=== PATIENT | male | born 1945 | race Caucasian/White ===

== ENCOUNTER → 2018-05-02 14:06 | Outpatient (CLI) | payer MEDICARE, SELFPAY ==
--- NOTE | 2018-05-02 14:26 | RAD_ITS ---
STUDY: X-RAY CHEST REASON FOR EXAM: Male, 72 years old. Cough TECHNIQUE: PA and lateral views of the chest. COMPARISON: 04/05/2017 FINDINGS: There is bilateral stable gynecomastia. Flattening of the diaphragm with increased AP diameter of the thorax. There is no focal parenchymal abnormality. There is no demonstrated pleural abnormality. Normal size heart. Normal mediastinum and bruno. Normal visualized pulmonary arteries. There is atherosclerotic calcification of the aortic arch with tortuosity. There are diffuse degenerative changes of the visualized thoracic spine. Normal visualized ribs, clavicles, and shoulders. There is no demonstrated abnormality of the visualized soft tissue structures of the upper abdomen. RAD/Chest PA and Lateral IMPRESSION: Component of COPD appears unchanged. No pulmonary edema, congestive heart failure or confluent pneumonia. Other nonacute findings as outlined above. Electronically Signed: Lakeshia Rivera MD at 7:28 EDT , Service support ,
[2018-05-02 16:41] LABS: BNP,B-Type NATRIURETIC PEPTIDE 97.5 pg/mL (0-100)
== END ==
PROVIDERS: Referring Provider Nurse Practitioner Family; Visit Provider Nurse Practitioner Family
DX: I35.0 Nonrheumatic aortic (valve) stenosis (principal); R05 Cough; R06.09 Other forms of dyspnea
CPT/HCPCS: 36415; 71046; 83880

== ENCOUNTER → 2018-05-14 14:48 | Outpatient (CLI) | payer MEDICARE, SELFPAY ==
--- NOTE | 2018-05-14 14:50 | ECHOD_ITS ---
Reason For Study: dyspnea/SOB Procedure This was a 2D Doppler, Color Flow transthoracic echocardiogram. The study was technically difficult. Due to body habitus and repiratory interference. Exam performed in department. Left Ventricle Normal LV size. Left ventricular systolic function is normal. The estimated ejection fraction is 65 %. Diastolic function is indeterminate. No regional wall motion abnormalities noted. Right Ventricle Normal RV size. Normal systolic function. Atria The left atrium is moderately enlarged. Normal right atrium. No doppler evidence for ASD. Mitral Valve There is mild to moderate mitral annular calcification. Mild diffuse mitral valve thickening. Trivial mitral valve insufficiency. Tricuspid Valve Normal tricuspid valve. Trivial tricuspid valve insufficiency. Right ventricular systolic pressure estimated to be 33 mmHg. Aortic Valve Trisinus/trileaflet aortic valve. Moderate diffuse aortic valve calcification. Severe aortic stenosis. Trivial aortic valve insufficiency. Pulmonic Valve The pulmonic valve is not well visualized. Great Vessels Normal sized aortic root. Pericardium/Pleural No pericardial effusion. MMode/2D Measurements & Calculations LVIDd: 5.5 cm IVSd: 1.0 cm LVOT diam: 2.1 cm LVIDs: 3.2 cm LVPWd: 1.1 cm LVOT area: 3.4 cm2 RVDd: 3.2 cm FS: 41.9 % Ao root diam: 3.6 cm LAV(MOD-bp): 89.2 ml LA A4 area: 27.6 cm2 LA dimension: 4.9 cm LAV(MOD-bp) Indexed: 35.3 ml/m2 LAV(MOD-sp2): 91.6 ml LAV(MOD-sp4): 85.4 ml RA A4 area: 17.2 cm2 Doppler Measurements & Calculations MV E max juaquin: 102.9 cm/sec Ao V2 max: 395.0 cm/sec AI max juaquin: 416.6 cm/sec Ao max P.0 mmHg AI max P.7 mmHg Ao V2 mean: 301.6 cm/sec AI dec slope: 268.3 cm/sec2 Ao mean P.3 mmHg AI P1/2t: 454.7 msec Ao V2 VTI: 83.4 cm EARNEST(I,D): 0.97 cm2 EARNEST(V,D): 0.93 cm2 LV V1 max: 109.5 cm/sec SV(LVOT): 81.0 ml PA V2 max: 115.7 cm/sec LV V1 max P.8 mmHg LV V1 mean P.8 mmHg LV V1 mean: 81.2 cm/sec LV V1 VTI: 24.2 cm TR max juaquin: 273.8 cm/sec TR max P.0 mmHg Interpretation Summary The study was technically difficult. Left ventricular systolic function is normal. The estimated ejection fraction is 65 %. The left atrium is moderately enlarged. There is mild to moderate mitral annular calcification. Mild diffuse mitral valve thickening. Trivial mitral valve insufficiency. Trivial tricuspid valve insufficiency. Severe aortic stenosis. Right ventricular systolic pressure estimated to be 33 mmHg. Diastolic function is indeterminate. Ordering Physician: Kaleb Cruz Referring Physician: [facility] Performed By: Kaye Cordero RDCS, RVT
== END ==
PROVIDERS: Referring Provider Nurse Practitioner Family; Visit Provider Nurse Practitioner Family
DX: I35.0 Nonrheumatic aortic (valve) stenosis (principal); R05 Cough; R06.09 Other forms of dyspnea
CPT/HCPCS: 93306

== ENCOUNTER → 2018-10-30 13:40 | Outpatient (CLI) | payer MEDICARE, SELFPAY ==
[2018-10-08 14:14] VITALS: BMI 44.7
--- NOTE | 2018-10-30 13:41 | ECHOCS_ITS ---
Reason For Study: VALVE REPL Procedure This was a 2D Doppler, Color Flow transthoracic echocardiogram. The exam was of poor technical quality due to body habitus. The study was technically difficult. Contrast injection was performed. Exam performed in department. Left Ventricle Normal LV size. Left ventricular systolic function is normal. The estimated ejection fraction is 65 %. No regional wall motion abnormalities noted. Right Ventricle Normal RV size. Normal systolic function. Atria The left atrium is moderately enlarged. The right atrium is mildly enlarged. No doppler evidence for ASD. Mitral Valve There is mild to moderate mitral annular calcification. Mild diffuse mitral valve thickening. Trivial mitral valve insufficiency. Tricuspid Valve Normal tricuspid valve. Mild tricuspid valve insufficiency. Right ventricular systolic pressure estimated to be 24 mmHg. Aortic Valve Stable appearing bioprosthetic aortic valve apparatus. Pulmonic Valve The pulmonic valve is not well visualized. Trivial pulmonic valve insufficiency. Great Vessels Normal sized aortic root. Pericardium/Pleural No pericardial effusion. Medication 22 gauge I.V. with prn adaptor inserted into right arm. Diluted definity 3ml given slow IV push to enhance endocardial definition. MMode/2D Measurements & Calculations LVIDd: 4.6 cm IVSd: 0.67 cm LVOT diam: 2.1 cm LVIDs: 3.2 cm LVPWd: 0.84 cm RVDd: 4.4 cm FS: 31.8 % LVOT area: 3.5 cm2 Ao root diam: 2.6 cm LAV(MOD-sp4): 69.7 ml EDV(MOD-sp4): 102.1 ml ESV(MOD-sp4): 38.7 ml EF(MOD-sp4): 62.1 % SV(MOD-sp4): 63.4 ml LA A4 area: 22.8 cm2 LA dimension(2D): 5.1 cm RA A4 area: 23.1 cm2 Time Measurements MV dec time: 0.21 sec Doppler Measurements & Calculations MV E max raheem: 150.0 cm/sec Lat Peak E' Raheem: 8.3 cm/sec Med Peak E' Raheem: 7.7 cm/sec MV A max raheem: 35.1 cm/sec E/E' lat: 18.2 E/E' med: 19.4 MV E/A: 4.3 Ao V2 max: 167.5 cm/sec LV V1 max: 98.6 cm/sec SV(LVOT): 64.7 ml Ao max P.3 mmHg LV V1 max P.9 mmHg Ao V2 mean: 112.9 cm/sec LV V1 mean P.4 mmHg Ao mean P.8 mmHg LV V1 mean: 73.2 cm/sec Ao V2 VTI: 27.1 cm LV V1 VTI: 18.3 cm EARNEST(I,D): 2.4 cm2 EARNEST(V,D): 2.1 cm2 PA V2 max: 124.0 cm/sec TR max raheem: 230.9 cm/sec TR max P.4 mmHg Interpretation Summary The study was technically difficult. Contrast injection was performed. Left ventricular systolic function is normal. The estimated ejection fraction is 65 %. The left atrium is moderately enlarged. The right atrium is mildly enlarged. There is mild to moderate mitral annular calcification. Mild diffuse mitral valve thickening. Trivial mitral valve insufficiency. Mild tricuspid valve insufficiency. Stable appearing bioprosthetic aortic valve apparatus. Trivial pulmonic valve insufficiency. Right ventricular systolic pressure estimated to be 24 mmHg. Transmitral diastolic flow velocities suggest diastolic dysfunction (pseudonormal pattern). Ordering Physician: Lesley Isaac/Eric Bell Referring Physician: [place] [place] Performed By: Susan Morlaes, RDCS, RVT
== END ==
PROVIDERS: Referring Provider Physician Assistant Medical; Visit Provider Physician Assistant Medical
DX: Z95.3 Presence of xenogenic heart valve (principal)
CPT/HCPCS: 93306; Q9957; A4216; C8929

== ENCOUNTER → 2019-05-14 | Outpatient (CLI) | payer MEDICARE, SELFPAY ==
[2018-10-08 14:14] VITALS: BMI 44.7
--- NOTE | 2019-05-14 10:03 | EKG12_ITS ---
Test Reason : AFIB Blood Pressure : / mmHG Vent. Rate : 088 BPM Atrial Rate : 092 BPM P-R Int : 000 ms QRS Dur : 142 ms QT Int : 392 ms P-R-T Axes : 000 -77 039 degrees QTc Int : 474 ms Atrial fibrillation Left axis deviation Right bundle branch block Inferior infarct , age undetermined , cannot be excluded Abnormal ECG Confirmed by TIA HENRIQUEZ, GEOFF ([id number]), fan mail editor TYRA DAILEY ([id number]) on 05/15/2019 8:40:37 AM Referred By: Silvano Hernandez Confirmed By:GEOFF WEBER MD
== END | disposition home or self-care (01) ==
PROVIDERS: Referring Provider Orthopaedic Surgery; Visit Provider Orthopaedic Surgery
DX: I48.91 Unspecified atrial fibrillation (principal)
CPT/HCPCS: 93005

== ENCOUNTER 2020-03-04 10:00 | Outpatient (RCR) | payer OTHER, SELFPAY ==
[2020-01-27 12:50] VITALS: BMI 40.1
--- NOTE | 2020-02-28 09:52 | HP.PTEVAL ---
Patient's Visit Information CARMEN ELLIS is a 74 year old M referred to Physical Therapy by JOE GRAY with a diagnosis of PD and debility. Date of Evaluation: 02/28/20 Physical Therapist: NICOLE Espinosa - Visit Plan Frequency: 3x /Week Duration: 5 weeks or 15 visits Plan: 3X/ week for 5 weeks for standing static and dynamic balance, gait, turning 180 degrees, walker mechanics, stretching, postural exercises with HEP - Subjective Pt was diagnosed with PD about 1.5 years ago. He has been on the walker. Pt has Alzheimers and thinks that he has been on the walker for about a year. He uses the walker around the house some and when not he uses the ryan and the furniture. He lives with his . He has no steps into the house and has a ramp. He has fallen a lot. He falls bi weekly....He usually goes to turn and he can't get his legs to work right. Last time he fell as he was getting into his car. He reports that he does not have trouble getting out of a chair. He showers with grab bars. He does drive. He is having trouble mostly with walking and turning when standing. - Objective Gait: walks with a front wheeled walker with shuffled gait and smaller step length. Posture: pt has rounded shoulders, increased trunk flexion.... LE MMT: B hip flex 4-/5, B knee ext 4/5, B knee flex 4-/5, B hip abd 4-/5, Bridge 1/2 normal ROM. Pt is able to roll from side to side with min cues for scooting. Tight B hS and gastroc. Sit to stand: able to stand without using UE... when sitting down he likes to fall back into the chair. Tinetti: 8. TUG: - Balance Scores Tinetti Balance Score: 6 Tinetti Gait Score: 2 Tinetti Balance & Gait Score: 8 - Goals Goal 1:: I HEP Goal Time Frame: 6-8 Weeks Goal 2:: Be able to walk with front wheeled walker with long even B strides, with good upright posture 200 feet without stopping/freezing episodes with min verbal cues. Goal Time Frame: 6-8 Weeks Goal 3:: Turn 180 degrees with front wheeled walker with CGA without having to freeze and taking 5 or less steps to get to a chair with minimal verbal cues. Goal Time Frame: 6-8 Weeks Goal 4:: Increase Tinetti score by 5 points to decrease fall risk ( at the time of the eval 13). Goal Time Frame: 6-8 Weeks Goal 5:: Be able to stand with feet together unsupoorted with head turns X 1 minute without LOB Goal Time Frame: 6-8 Weeks - Rehabilitation Potential Rehabilitation Potential: Good - Anticipated Interventions Patient/Client Instruction: Educate patient on: Condition, Plan of Care For the Purpose of:: To increase ROM, To improve nutrient delivery to tissue, To improve muscle performance and motor function, To improve ability to perform ADL's, To improve performance and independence with ADL's, To decrease level of supervision to perform tasks, To improve ability of physical actions for home/community/work/leisure, To improve gait and locomotor functions, To improve health of tissue, To improve endurance, To improve balance, To improve safety with gait Therapeutic Exercise to Include: Strength training, Balance training, Coordination, Body mechanics, Postural training, Flexibilty training, Gait and locomotor training, Neuromotor development, Passive ROM, Active ROM For the Purpose of:: To improve muscle performance and motor function, To improve ability to perform ADL's, To increase tolerance to activity/condition/position, To improve performance and independence with ADL's, To decrease level of supervision to perform tasks, To improve ability of physical actions for home/community/work/leisure, To improve gait and locomotor functions, To improve health of tissue, To increase flexibility/ROM, To improve endurance, To improve balance, To improve safety with gait Functional Training to Include: Gait training For the Purpose of:: To improve gait and locomotor functions, To improve safety with gait Thank you for the opportunity to evaluate your patient. For Medicare and Medicare HMO plans, please review the plan of care and approve it. It will need to be FAXED BACK to us at [phone] for Medicare purposes. For Medicare only, by signing this I certify the plan of care. Please let me know if there are questions or concerns regarding this plan of care. Physician Signature: Date:
--- NOTE | 2020-05-20 12:39 | HP.PT.NRP ---
CARMEN ELLIS was seen in my office for initial evaluation on 02/28/20. The following Plan of Care was established for this patient: Initial Frequency: 3x /Week Initial Duration: 5 weeks or 15 visits Patient/Client Instruction: Educate patient on: Condition, Plan of Care For the Purpose of:: To increase ROM, To improve nutrient delivery to tissue, To improve muscle performance and motor function, To improve ability to perform ADL's, To improve performance and independence with ADL's, To decrease level of supervision to perform tasks, To improve ability of physical actions for home/community/work/leisure, To improve gait and locomotor functions, To improve health of tissue, To improve endurance, To improve balance, To improve safety with gait Therapeutic Exercise to Include: Strength training, Balance training, Coordination, Body mechanics, Postural training, Flexibilty training, Gait and locomotor training, Neuromotor development, Passive ROM, Active ROM For the Purpose of:: To improve muscle performance and motor function, To improve ability to perform ADL's, To increase tolerance to activity/condition/position, To improve performance and independence with ADL's, To decrease level of supervision to perform tasks, To improve ability of physical actions for home/community/work/leisure, To improve gait and locomotor functions, To improve health of tissue, To increase flexibility/ROM, To improve endurance, To improve balance, To improve safety with gait Functional Training to Include: Gait training For the Purpose of:: To improve gait and locomotor functions, To improve safety with gait This patient was last seen in our office 03/04/20. Pertinent comments regarding their Physical therapy will appear below: [facility] PT as pt did not reschedule after his last appointment. At his las appointment he reported that he had fallen 3X in one week. At this point I will be discontinuing this patient from physical therapy. I would be happy to see this patient again in the future if found appropriate by the physician. Thank you! Lorena Gaston, MPT
== END 2020-03-04 19:00 | disposition home or self-care (01) ==
LOC: PT 10:00
DX: R54 Age-related physical debility (principal)
CPT/HCPCS: 97110; 97162

== ENCOUNTER → 2022-10-17 | Outpatient (CLI) | payer MEDICARE, SELFPAY ==
--- NOTE | 2022-10-17 13:48 | ECHOCS_ITS ---
Reason For Study: SOB Procedure This was a 2D Doppler, Color Flow transthoracic echocardiogram. The study was technically difficult. Patient unable to transfer to bed. Scanned in wheel chair. Exam performed in department. Left Ventricle Normal LV size. Mild concentric left ventricular hypertrophy. Left ventricular systolic function is normal. The estimated ejection fraction is 60 %. No regional wall motion abnormalities noted. Right Ventricle Normal RV size. Normal systolic function. Atria The left atrium is severely enlarged. The right atrium is moderately enlarged. Mitral Valve Mitral valve not well visualized. Mild (1+) eccentric mitral valve insufficiency. Tricuspid Valve The tricuspid valve is not well visualized. Aortic Valve Peak aortic valve gradient 15 mmHg. Mean aortic valve gradient 7 mmHg. Stable appearing bioprosthetic aortic valve apparatus. Pulmonic Valve The pulmonic valve is not well visualized. Great Vessels Normal aortic root. Pericardium/Pleural No pericardial effusion. Medication 22 gauge I.V. with prn adaptor inserted into left arm. Diluted definity 1.5ml given slow IV push to enhance endocardial definition. MMode/2D Measurements & Calculations LVIDd: 4.5 cm IVSd: 1.3 cm LVOT diam: 2.1 cm LVIDs: 3.2 cm LVPWd: 1.2 cm FS: 29.9 % LVOT area: 3.6 cm2 Ao root diam: 3.6 cm LAV(MOD-bp): 116.6 ml LA A4 area: 34.3 cm2 LAV(MOD-bp) Indexed: 44.0 ml/m2 LAV(MOD-sp2): 111.8 ml LAV(MOD-sp4): 114.5 ml LA dimension(2D): 4.1 cm RA A4 area: 26.9 cm2 Doppler Measurements & Calculations MV E max juaquin: 131.8 cm/sec MV V2 max: 137.1 cm/sec MV P1/2t max juaquin: 133.3 cm/sec MV max P.5 mmHg MV P1/2t: 82.1 msec MV V2 mean: 46.7 cm/sec MV dec slope: 475.2 cm/sec2 MV mean P.4 mmHg MV V2 VTI: 31.5 cm MVA(P1/2t): 2.7 cm2 MVA(VTI): 2.5 cm2 Ao V2 max: 193.5 cm/sec LV V1 max: 109.1 cm/sec SV(LVOT): 78.8 ml Ao max P.1 mmHg LV V1 max P.8 mmHg Ao V2 mean: 125.5 cm/sec LV V1 mean P.5 mmHg Ao mean P.3 mmHg LV V1 mean: 74.2 cm/sec Ao V2 VTI: 39.0 cm LV V1 VTI: 21.9 cm AV (velocity ratio): 0.56 EARNEST(I,D): 2.0 cm2 EARNEST(V,D): 2.0 cm2 PA V2 max: 102.6 cm/sec TR max juaquin: 181.8 cm/sec PA V2 mean: 60.9 cm/sec TR max P.2 mmHg ECHO/Echo Complete W/ Contrast Interpretation Summary Normal LV size. Mild concentric left ventricular hypertrophy. Left ventricular systolic function is normal. The estimated ejection fraction is 60 %. Stable appearing bioprosthetic aortic valve apparatus. Mean aortic valve gradient 7 mmHg. Contrast injection was performed. Ordering Physician: Lesley Isaac/Ambrose Moffett Referring Physician: [facility] Performed By: Tala Mendoza RDCS
== END | disposition home or self-care (01) ==
PROVIDERS: Referring Provider Physician Assistant Medical; Visit Provider Physician Assistant Medical
DX: R06.00 Dyspnea, unspecified (principal)
CPT/HCPCS: 93306; Q9957; A4216; C8929